=== PATIENT | male | born 1965 | race African-American/Black ===

== ENCOUNTER → 2016-08-18 | Outpatient (CLI) | payer OTHER ==
--- NOTE | 2016-08-21 08:29 | CT ---
HISTORY: History of great toe fracture in 2016 Study: CT of the left foot Comparison: 03/13/2016 Technique: Multiple axial images were obtained without administration of IV contrast. Sagittal and coronal reformats were performed and reviewed. Dose reduction techniques including Automated Exposur e Control (AEC) and adjustment of mA and kV were utilized. Findings: There is bony remodeling of the proximal phalanx of the great toe compatible with healed fracture. N o definite loose fragments or other complication. Chronic subchondral hypodense changes at the dista l 1st metacarpal likely degenerative in nature. There are chronic degenerative changes of the midfoo t and hindfoot. There are 2nd through 5th hammertoe deformities again demonstrated. There is some mi ld subcutaneous edema along the plantar surface of the foot. No fluid collections or soft tissue gas identified. No evidence of acute fracture. IMPRESSION: 1. Bony remodeling of the proximal phalanx of the great toe compatible with interval healing of frac ture. 2. Chronic degenerative changes of the foot as described. Reported By:
== END ==
LOC: RAD 13:52
PROVIDERS: ATTEND Orthopaedic Surgery
DX: Z87.81 Personal history of (healed) traumatic fracture (principal)
CPT/HCPCS: 73700